=== PATIENT | male | born 1955 | race Caucasian/White ===

== ENCOUNTER 2016-12-09 20:38 | Emergency (ER) | payer OTHER, BC ==
[2016-12-09 20:57] VITALS: BP 123/78
--- NOTE | 2016-12-09 21:29 | EDM.PDOC ---
ED HPI GENERAL MEDICAL PROBLEM - General Chief Complaint: Lower Extremity Injury/Pain Stated Complaint: INJURED RT LEG Time Seen by Provider: 12/09/16 21:21 Source of Information: Reports: Patient History Limitations: Reports: No Limitations - History of Present Illness INITIAL COMMENTS - FREE TEXT/NARRATIVE: Patient is a 61-year-old male who presents the ED complaining of right medial knee pain. Patient was working on a paving machine and stepped off accidentally stepping into a drainage hole. Patient caught himself and while doing so hit the affected knee against the metal. He was able to get up on his own accord with no issues. He ambulated throughout the course of the day with worsening stiffness and pain present. Pain is worsened with palpation of the medial joint line and also flexion of the knee. Minimal swelling present. No ecchymosis present. Patient did ambulate into the ED on its own accord. Injury occurred approximately 11:00 this morning. He offers no additional complaints. Right Knee Pain Score (Numeric/FACES): 8 - Related Data Allergies Allergy/AdvReac Type Severity Reaction Status Date / Time No Known Allergies Allergy Verified 12/09/16 20:54 Home Meds: Home Meds Triamcinolone Acetonide [Triamcinolone Acetonide 0.025% Crm] 0 gm TOP DAILY [History] Lisinopril/Hydrochlorothiazide [Lisinopril-Hctz 10-12.5 mg Tab] 1 tab PO DAILY 03/17/16 [History] Past Medical History - Past Health History Medical/Surgical History: Denies Medical/Surgical History HEENT History: Reports: Impaired Vision Other HEENT History: Wears glasses Cardiovascular History: Reports: Hypertension Dermatologic History: Reports: Eczema Social & Family History - Tobacco Use Smoking Status *Q: Never Smoker - Alcohol Use Days Per Week of Alcohol Use: 2 Number of Drinks Per Day: 1 Total Drinks Per Week: 2 - Recreational Drug Use Recreational Drug Use: No - Living Situation & Occupation Living situation: Reports: Occupation: Employed Review of Systems - Review of Systems Review Of Systems: See Below Musculoskeletal: Reports: Joint Pain (Right knee) Skin: Denies: Bruising Neurological: Reports: Difficulty Walking (Secondary to right knee pain). Denies: Numbness, Tingling ED EXAM, GENERAL - Physical Exam Exam: See Below Exam Limited By: No Limitations General Appearance: Alert, WD/WN, No Apparent Distress Ears: Hearing Grossly Normal Nose: Normal Inspection Throat/Mouth: Normal Voice, No Airway Compromise Neck: Normal Inspection, Supple Respiratory/Chest: No Respiratory Distress, No Accessory Muscle Use Cardiovascular: Normal Peripheral Pulses, Regular Rate, Rhythm Peripheral Pulses: 2+: Posterior Tibial (R) Extremities: Other (Right knee: Pain with palpation of the medial joint line. Minimal swelling present. Increased pain with flexion of the knee. Unable to do additional provocative testing. This is secondary to pain. Decreased range of motion noted. No pain with palpation of patella. Patella is freely movable. No pain noted with palpation of the lateral joint space or posteriorly. No pain to the upper leg or lower extremity.) Neurological: Alert, Oriented, CN II-XII Intact, Normal Cognition Psychiatric: Normal Affect, Normal Mood Skin Exam: Warm, Dry, Intact, Normal Color Course - Vital Signs Last Recorded V/S: Last Vital Signs Temp 98.8 F 12/09/16 20:55 Pulse 80 12/09/16 20:55 Resp 16 12/09/16 20:55 BP 123/78 12/09/16 20:55 Pulse Ox 98 12/09/16 20:55 - Re-Assessments/Exams Free Text/Narrative Re-Assessment/Exam: Ordered x-ray of the right knee. 12/09/16 21:49 No acute bony antibiotics noted. Reviewed with Dr. Tracy. Final interpretation pending. Most likely etiology is contusion to the medial aspect of the right knee. Possibility of meniscus tear, MCL strain/tear. Physical examination incomplete due to increasing pain with manipulation.Will place nona wrap to the affected knee. Patient refuses crutches. Discharge instructions as documented. Departure - Departure Time of Disposition: 21:54 Disposition: Home, Self-Care 01 Condition: Good Clinical Impression: Contusion of knee, right Qualifiers: Encounter type: initial encounter Qualified Code(s): S80.01XA - Contusion of right knee, initial encounter Knee MCL sprain Qualifiers: Encounter type: initial encounter Laterality: right Qualified Code(s): S83.411A - Sprain of medial collateral ligament of right knee, initial encounter - Discharge Information Instructions: Knee Sprain, [id number] Referrals: Tommy Manuel MD [Physician] - Forms: ED Department Discharge, ED Return to Work/School Form Additional Instructions: As discussed refrain from any activities that cause worsening pain. Elevate when able to reduce swelling and discomfort. Apply ice to affected area 4-6 times daily 20 to duration do not apply ice directly on skin. Take Aleve and Tylenol as directed by the director dental services as needed for pain. Follow-up with orthopedic surgeon in 1-2 weeks for reevaluation. Utilize nona wrap while on your feet to reduce any swelling and discomfort. Return to the ED as needed for any new or worsening symptoms.
--- NOTE | 2016-12-10 10:14 | CR ---
Right knee: Four views of the right knee were obtained Comparison: No previous study. Medial and lateral joint spaces are maintained in height. Film technique slightly dark. Small calcification projects posteriorly over the medial joint possibly due to small loose body. No joint effusion is seen. No acute fracture or other bony abnormality is identified. Impression: 1. Slightly dark technique. 2. Small calcification overlying the medial joint and difficult to exclude loose body. 3. No acute bony abnormality is appreciated. Diagnostic code #2
== END 2016-12-09 22:05 | disposition home or self-care (01) ==
LOC: JD.ED 20:38
DX: S83.411A Sprain of medial collateral ligament of right knee, initial encounter (principal); S80.01XA Contusion of right knee, initial encounter; I10 Essential (primary) hypertension; Z79.899 Other long term (current) drug therapy; W22.8XXA Striking against or struck by other objects, initial encounter
CPT/HCPCS: 73564-26-RT; 73564-RT; 99282; 99283